=== PATIENT | male | born 1990 | race Two or more races ===

== ENCOUNTER 2021-01-04 19:24 | Emergency (ER) | payer OTHER ==
[2021-01-04 19:28] VITALS: BP 134/75; PULSE 79; TEMP 97.9; BMI 23.8
[2021-01-04] MEDS ORDERED: IBUPROFEN 600 MG TABLET (FP) PO ONE ×2 (19:54→20:03)
[2021-01-04] MEDS ORDERED: LIDOCAINE 5% TOPICAL PATCH TP ONE (19:54)
[2021-01-04] MEDS ORDERED: CYCLOBENZAPRINE HCL 10 MG TABLET (FP) PO ONE (19:54)
[2021-01-04] MEDS ORDERED: CYCLOBENZAPRINE HCL 10 MG TABLET (FP) ONE (20:03)
[2021-01-04] MEDS ORDERED: LIDOCAINE 5% TOPICAL PATCH ONE (20:04)
[2021-01-05] MEDS ORDERED: LIDOCAINE PATCH REMOVAL MC SCH (08:00)
== END 2021-01-04 20:49 | disposition home or self-care (01) ==
LOC: JERFT 19:24
DX: M54.5 Low back pain (principal)
CPT/HCPCS: 72100-TC-FY; 99284-25

== ENCOUNTER 2023-02-04 08:17 | Emergency (ER) | payer OTHER ==
[2023-02-04 08:40] VITALS: BP 125/82; PULSE 79; RESP 18; TEMP 98.1; BMI 24.7
[2023-02-04 09:45] LABS: BASO % 0.6 % (0-2.0); EOS % 1.4 % (0-4.5); HEMATOCRIT 43.5 % (35.4-49); HEMOGLOBIN 15.8 GM/dL (11.7-16.9); LYMPH % 15.5 % (8-40); MCH 31.6 pg (25.7-33.7); MCHC 36.2 g/dl (32.0-35.9); MEAN CELL VOLUME 87.2 fl (80-96); MEAN PLT VOLUME 7.8 fl (7.5-11.1); MONO % 8.5 % (3.8-10.2); PLATELET COUNT 258 10^3/uL (134-434); RBC 4.99 M/mm3 (4.00-5.60); RDW 12.7 % (11.9-15.9); WHITE BLOOD COUNT 7.5 K/mm3 (4.0-10.0)
[2023-02-04 10:04] LABS: BLOOD UREA NITROGEN 12.6 mg/dL (7-18); CALCIUM 9.1 mg/dL (8.5-10.1)
[2023-02-04 10:07] LABS: CREATININE 1.1 mg/dL (0.55-1.3)
[2023-02-04 10:09] LABS: BILIRUBIN,TOTAL 0.9 mg/dL (0.2-1); TOT PROT 7.6 g/dl (6.4-8.2)
[2023-02-04] MEDS ORDERED: KETOROLAC TROMETHAMINE 15 MG/ML VIAL IVPUSH ONE (10:16)
== END 2023-02-04 10:47 | disposition home or self-care (01) ==
LOC: JER 08:17
PROC: 3E0333Z Introduction of Anti-inflammatory into Peripheral Vein, Percutaneous Approach (ICD-10-PCS; principal; 2023-02-04)
DX: R07.2 Precordial pain (principal); R06.02 Shortness of breath; R68.83 Chills (without fever); R11.0 Nausea
CPT/HCPCS: 36415; 71046-TC-FY; 80053; 83690; 83880; 84484; 85025; 93005; 93010; 99285-25

== ENCOUNTER 2023-05-14 01:13 | Emergency (ER) | payer OTHER ==
[2023-05-14 01:32] VITALS: BP 123/88; PULSE 81; RESP 16; TEMP 97.9; BMI 25.8
[2023-05-14] MEDS ORDERED: ACETAMINOPHEN 325 MG TABLET (FP) PO ONE (02:29)
[2023-05-14] MEDS ORDERED: LIDOCAINE 5% TOPICAL PATCH TP ONE (02:29)
[2023-05-14] MEDS ORDERED: KETOROLAC TROMETHAMINE 30 MG/1 ML VIAL IM ONE (02:29)
[2023-05-14] MEDS ORDERED: ACETAMINOPHEN 325 MG TABLET (FP) ONE (02:57)
[2023-05-14] MEDS ORDERED: LIDOCAINE 5% TOPICAL PATCH ONE (02:58)
[2023-05-14] MEDS ORDERED: KETOROLAC TROMETHAMINE 30 MG/1 ML VIAL ONE (02:58)
== END 2023-05-14 03:31 | disposition home or self-care (01) ==
LOC: JER 01:13
PROC: 3E0233Z Introduction of Anti-inflammatory into Muscle, Percutaneous Approach (ICD-10-PCS; principal; 2023-05-14)
DX: M54.50 Low back pain, unspecified (principal); M79.606 Pain in leg, unspecified
CPT/HCPCS: 99284-25

== ENCOUNTER 2025-04-10 22:45 | Emergency (ER) | payer OTHER ==
[2025-04-10 22:51] VITALS: BP 133/73; PULSE 82; RESP 20; TEMP 98.1; BMI 23.5
[2025-04-10] MEDS ORDERED: ACETAMINOPHEN 500 MG TABLET (FP) ONE (23:18)
[2025-04-10] MEDS ORDERED: METHOCARBAMOL 500 MG TABLET ONE (23:18)
[2025-04-10] MEDS ORDERED: LIDOCAINE 4% PATCH TP ONE (23:19)
[2025-04-10] MEDS ORDERED: predniSONE 20 MG TABLET (UD) ONE (23:19)
[2025-04-10] MEDS: METHOCARBAMOL 500 MG TABLET PO ONE (23:22)
[2025-04-10] MEDS: predniSONE 20 MG TABLET (UD) PO ONE (23:22)
[2025-04-10] MEDS: ACETAMINOPHEN 500 MG TABLET (FP) PO ONE (23:22)
[2025-04-10] MEDS: LIDOCAINE 4% PATCH TP ONE (23:23)
== END 2025-04-10 23:32 | disposition home or self-care (01) ==
LOC: JER 22:45
DX: S39.012A Strain of muscle, fascia and tendon of lower back, initial encounter (principal); M54.42 Lumbago with sciatica, left side; X50.1XXA Overexertion from prolonged static or awkward postures, initial encounter; Y93.67 Activity, basketball
CPT/HCPCS: 99283-25